=== PATIENT | female | born 1995 | race Caucasian/White ===

== ENCOUNTER 2024-08-04 15:28 | Emergency (ER) | payer BC, SELFPAY ==
[2024-08-04 15:47] VITALS: BP 147/97; PULSE 96; RESP 16; TEMP 36.9; O2SAT 96; BMI 51.1
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
[2024-08-04 16:16] VITALS: BP 149/85; PULSE 92; RESP 18; O2SAT 96
[2024-08-04 17:42] VITALS: BP 126/96; PULSE 94; O2SAT 95
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
== END 2024-08-04 17:43 | disposition home or self-care (01) ==
PROVIDERS: Emergency Provider Physician Assistant
DX: S40.022A Contusion of left upper arm, initial encounter (principal); S16.1XXD Strain of muscle, fascia and tendon at neck level, subsequent encounter; S09.8XXD Other specified injuries of head, subsequent encounter; S39.012D Strain of muscle, fascia and tendon of lower back, subsequent encounter; V89.2XXD Person injured in unspecified motor-vehicle accident, traffic, subsequent encounter; V89.2XXA Person injured in unspecified motor-vehicle accident, traffic, initial encounter
CPT/HCPCS: 70450; 72100; 72125; 73080; 99284

== ENCOUNTER → 2024-08-18 10:31 | Outpatient (BNVA) | payer MEDICAID, SELFPAY | PROVIDERS: Visit Provider Nurse Practitioner | DX: M25.522 Pain in left elbow (principal); S50.12XA Contusion of left forearm, initial encounter; V89.2XXA Person injured in unspecified motor-vehicle accident, traffic, initial encounter; M25.422 Effusion, left elbow | CPT/HCPCS: 73030; 73080 ==

== ENCOUNTER 2024-08-20 14:30 | Outpatient (CLI) | payer MEDICAID, SELFPAY ==
--- NOTE | 2024-08-20 14:30 | MR_ITS ---
WS: [id number] EXAMINATION: MR elbow LT wo con* [id number] ORDER DATE: 08/20/2024 2:36 PM COMPARISON: None. HISTORY: elbow pain CONTRAST: None.None. TECHNIQUE: Axial T1, axial T2 fat sat, coronal T1, coronal proton density fat sat, coronal STIR, sagi ttal proton density fat sat, and axial fat sat 3D performed. After contrast, axial T1 fat sat, coron al T1 fat sat, and sagittal T1 fat sat were performed. FINDINGS: Bony fragmentation and sclerosis involving the lateral humeral epicondyle extending to the undersurface of the capitellum compatible with prior osteochondral injury and suspected osteochondrit is or osteonecrosis. This is somewhat difficult to further evaluate due to location and slice thickne ss. Normal bone marrow signal in the radial head. No significant joint effusion. Normal olecranon. Normal coronoid process Normal bone marrow signal in the trochlea. Distal triceps insertion appears normal. Normal visualized biceps tendon insertion. Common flexor and extensor tendo n origins are normal in appearance. Normal radial and ulnar collateral ligaments. MR/MR elbow LT wo con* [id number] IMPRESSION: 1. Fragmentation and sclerosis involving the lateral humeral epicondyle and un dersurface of the capitellum extending to the articular surface compatible with osteochondral injury with osteochondritis or osteonecrosis. Recommend correlat ion for lateral elbow pain and prior injury. No visualized intra-articular loos e bodies. CT can be obtained for better anatomic detail if indicated. 2. No significant joint effusion. 3. Normal radial head and neck. 4. No other acute findings.
== END 2024-08-20 14:31 | disposition home or self-care (01) ==
PROVIDERS: PCP Nurse Practitioner; Visit Provider Nurse Practitioner
DX: M25.522 Pain in left elbow (principal); R93.6 Abnormal findings on diagnostic imaging of limbs
CPT/HCPCS: 73221

== ENCOUNTER 2024-08-26 14:22 | Outpatient (CLI) | payer MEDICAID, SELFPAY | END 2024-08-26 14:23 | disposition home or self-care (01) | LOC: SPT 14:23 | PROVIDERS: PCP Nurse Practitioner; Visit Provider Nurse Practitioner | DX: Z46.89 Encounter for fitting and adjustment of other specified devices (principal); S42.432D Displaced fracture (avulsion) of lateral epicondyle of left humerus, subsequent encounter for fracture with routine healing; X58.XXXD Exposure to other specified factors, subsequent encounter | CPT/HCPCS: L3761 ==

== ENCOUNTER → 2024-09-08 13:39 | Outpatient (BNVA) | payer MEDICAID, SELFPAY | PROVIDERS: PCP Nurse Practitioner; Visit Provider Nurse Practitioner | DX: S42.435A Nondisplaced fracture (avulsion) of lateral epicondyle of left humerus, initial encounter for closed fracture (principal); X58.XXXA Exposure to other specified factors, initial encounter | CPT/HCPCS: 73080 ==

== ENCOUNTER 2024-10-07 11:22 | Outpatient (CLI) | payer MEDICAID, SELFPAY ==
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
== END 2024-10-07 11:23 | disposition home or self-care (01) ==
PROVIDERS: PCP Nurse Practitioner; Visit Provider Nurse Practitioner
DX: S42.435A Nondisplaced fracture (avulsion) of lateral epicondyle of left humerus, initial encounter for closed fracture (principal); X58.XXXA Exposure to other specified factors, initial encounter; R93.6 Abnormal findings on diagnostic imaging of limbs
CPT/HCPCS: 73200

== ENCOUNTER → 2025-04-24 11:04 | Outpatient (BNVA) | payer OTHER, SELFPAY | PROVIDERS: PCP Nurse Practitioner; Visit Provider Nurse Practitioner | DX: Z01.818 Encounter for other preprocedural examination (principal) | CPT/HCPCS: 36415; 80053; 81001; 85025 ==

== ENCOUNTER 2025-05-12 08:12 | Day surgery (SDC) | payer OTHER, SELFPAY ==
[2025-05-12] VITALS (15 sets, daily range): BP systolic 102–158; BP diastolic 65–106; PULSE 76–103; RESP 12–20; TEMP 36.1–36.3; O2SAT 90–100; BMI 51.6
[2025-05-12 08:27] LABS: OR HCG Qualitative Urine Negative (Negative)
--- NOTE | 2025-05-12 08:58 | ANES.PREANE2 ---
Pre-Anesthetic Assessment Height/Weight: Height 5 ft 6 in Weight 320 lb Temp Pulse Resp BP Pulse Ox O2 Del Method 97.2 F L 76 18 158/106 100 Room Air 05/12/25 08:35 05/12/25 08:35 05/12/25 08:35 05/12/25 08:35 05/12/25 08:35 05/12/25 08:35 Preop Diagnosis: Ulnar neuropathy Operation Date: 05/12/25 09:55 Proposed Procedures p Ulnar Nerve Decompression(Left) - Sandra Guillaume MD Was Beta Trever taken within 24 hours: N/A Was Clonidine taken within 24 hours: N/A Last intake: Intake Last Liquid Date 05/11/25 Last Liquid Time 23:30 Last Solid Date 05/11/25 Last Solid Time 21:00 Social No alcohol and No tobacco Exam alert, oriented x 3, clear to auscultation bilaterally and regular rate & rhythm Airway Submandibular: within normal limits Cervical ROM: within normal limits Mallampati: Class I Dentition: full Anesthetic Plan ASA status: 3 Anesthesia: General Other: No prior issues with anesthesia NPO since yesterday evening History of asthma, controlled with inhalers Denies any cardiac issues METs greater than 4 hCG negative BMI 51.6 Plan for GETA Medications/Allergies Home Medications ?Medication ?Instructions ?Recorded ?Confirmed ?Last Taken ?Type sertraline 50 mg tablet 100 mg PO DAILY 08/04/24 05/11/25 05/11/25 History meloxicam 15 mg tablet 15 mg PO DAILY 30 days #30 tabs 11/12/24 05/11/25 04/28/25 Rx tennis elbow strap #1 ea 11/28/24 04/24/25 Unknown Rx Allergies Allergy/AdvReac Type Severity Reaction Status Date / Time doxycycline Allergy Severe vomitting Verified 05/11/25 12:34 azithromycin (From Zithromax) Allergy ALGY-Hives Verified 05/12/25 08:26 oxycodone Allergy ALGY-Rash Verified 05/11/25 12:34 Penicillins Allergy ALGY-Swell Verified 05/12/25 08:26 Lip/Tongue/Throat Sulfa (Sulfonamide Allergy ALGY-Hives Verified 05/12/25 08:26 Antibiotics) [facility] Anesthesia Medical History (Updated 04/24/25 @ 09:34 by Montse Jomar, COIL TAPER-BC) Ulnar neuropathy at elbow of left upper extremity Positive Tinel sign Lateral epicondylitis of left elbow Social History Smoking and tobacco/nicotine status: never used tobacco/nicotine Female Reproductive History Date of last menstrual period: 05/04/25
[2025-05-12] MEDS: acetaminophen 1,000 MG/100 ML PIGGYBACK 400 MG IV (09:00)
--- NOTE | 2025-05-12 09:35 | P.HPUD_ITS ---
Surgery/Procedure H&P Update DATE OF PROCEDURE: May 12, 2025 DATE H&P PERFORMED: 04/24/25 H&P UPDATE INFORMATION: I have reviewed H&P completed within last 30 days, I have examined patient prior to procedure, No changes to prior documentation, H&P is in [facility] EMR on date indicated and Risks and benefits of the procedure reviewed PREOP DIAGNOSIS: Ulnar neuropathy PRIMARY INDICATION FOR PROCEDURE: NCV per Dr. Rios: IMPRESSION: 1. Bilateral median nerves normal with no signs of entrapment. 2. Right ulnar nerve was normal. 3. Mild slowing of conduction across the elbow in left ulnar nerve with mild a xonal loss, consistent with mild left ulnar neuropathy at the elbow. 4. There were no signs of radiculopathy. PLANNED PROCEDURE: Operation Date: 05/12/25 09:55 Proposed Procedures p Ulnar Nerve Decompression(Left) - Sandra Guillaume MD
[2025-05-12] MEDS: BUPivacaine-epi 0.5% 10 ML INJ XX (10:32)
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
[2025-05-12] MEDS: ondansetron 2 mg/ML SDV 2 mL 4 MG IVP ×2 (11:05→12:15)
[2025-05-12] MEDS: fentaNYL 50 mcg/mL INJ 2mL IVP (11:15)
[2025-05-12] MEDS: midazolam 1 mg/mL INJ 2 mL 2 MG IVP (11:34)
--- NOTE | 2025-05-12 13:11 | ANE.PACU2 ---
Inpatient post-anesthesia follow up: Airway intact: Yes Vital signs: Temperature 97.3 F Pulse Rate 82 Respiratory Rate 18 Blood Pressure 122/86 Pulse Oximetry 96 Oxygen Delivery Me thod Room Air Oxygen Flow Rate Fraction of Inspir ed Oxygen Hydration adequate: Yes Nausea and vomiting: No Pain level: 1 Mental status: Baseline
== END 2025-05-12 13:11 | disposition home or self-care (01) ==
PROVIDERS: Student in an Organized Health Care Education/Training Program; PCP Nurse Practitioner; Visit Provider Specialist
PROC: (CPT 64718; principal; 2025-05-12 09:55)
DX: G56.22 Lesion of ulnar nerve, left upper limb (principal); J45.909 Unspecified asthma, uncomplicated
CPT/HCPCS: 64718; 81025; J0131; J0330; J1100; J1885; J2250; J2405; J2704; J3010; J3373; J3490; J9999